=== PATIENT | male | born 1930 | race Caucasian/White ===

== ENCOUNTER 2018-08-18 13:15 | Inpatient (IN) | payer OTHER ==
--- NOTE | 2018-08-18 13:31 | PDOC ---
Attending Attestation - Resident Resident Name: Laith Angulo - HPI HPI: 08/18/18 14:41 Pt presents to the ED complaining of a 5 day history of productive cough, generalized malaise and fever. Also complains of shortness of breath without chest pain. 08/18/18 14:43 08/18/18 14:48 - Physicial Exam PE: 08/18/18 14:48 Agree with resident exam. Patient is alert and oriented and in no acute distress. Lungs are clear. Heart has regular rate and rhythm without murmurs. - Medical Decision Making 08/18/18 14:49 Pt presents to the ED complaining of fever to 102, shortness of breath, productive cough and myalgias. Tachycardic in the Ed. Differential included PNA, ACS, less likely PE. Labs show mild WBC count. CXR ? PNA. Given age and fever, will start IV antibiotics and admit for observation. 08/18/18 18:43
--- NOTE | 2018-08-18 13:32 | PDOC ---
History of Present Illness - General Chief Complaint: Shortness of Breath Stated Complaint: WEAKNESS Time Seen by Provider: 08/18/18 13:30 - History of Present Illness Initial Comments: 08/18/18 14:34 The patient is an 88 year old male with a history of HTN, HLD who presents for evaluation of cough and shortness of breath. The patient reports a 5 day history of intermittently productive cough with associated body aches, fevers and shortness of breath. The patient notes that his fevers have improved, but reports continued shortness of breath, chest congestion and cough prompting his presentation to the ED for further evaluation. He otherwise denies chills, chest pain, nausea, vomiting, abdominal pain, or changes with urination or bowel movements. Past History - Past Medical History Allergies/Adverse Reactions: Allergies Allergy/AdvReac Type Severity Reaction Status Date / Time No Known Allergies Allergy Verified 08/18/18 13:19 Home Medications: Ambulatory Orders Metoprolol Succinate 25 mg PO DAILY 08/18/18 COPD: No HTN: Yes Other medical history: RA - Immunization History Immunization Up to Date: Yes - Suicide/Smoking/Psychosocial Hx Smoking History: Never smoked Hx Alcohol Use: No Drug/Substance Use Hx: No Review of Systems - Review of Systems Comments:: 08/18/18 14:37 Constitutional: Fevers, Body aches, HEENT: No Rhinorrhea, nasal congestion, visual changes Cardiovascular: No chest pain, syncope, palpitations, lightheadedness Respiratory: Cough, SOB. Chest congestion. No Hemoptysis, Gastrointestinal: No Abdominal pain, Nausea, Vomiting, Constipation, Diarrhea, Melena Genitourinary: No Dysuria, Frequency, Urgency, Hesitancy, Hematuria, Flank pain Musculoskeletal: No Myalgia, arthralgia Skin: No rashes, itching, bruising, pallor Neurologic: No Headache, Dizziness, Numbness, Weakness, or Tingling Psychiatric: No Hallucinations. No SI or HI *Physical Exam - Vital Signs Last Vital Signs Temp Pulse Resp BP Pulse Ox 97.6 F 110 H 18 152/88 96 08/18/18 13:21 08/18/18 13:21 08/18/18 13:21 08/18/18 13:21 08/18/18 13:21 - Physical Exam Comments: 08/18/18 14:37 General Appearance: Nourished. No Apparent Distress HEENT: No Pharyngeal Erythema, Tonsillar Exudate, Tonsillar Erythema Neck: No Cervical Lymphadenopathy Respiratory/Chest: Lungs Clear, Normal Breath Sounds. Bibasilar rales noted on exam. No Crackles, Rhonchi, Wheezing Cardiovascular: Regular Rhythm, Regular Rate. No Murmur, Gallops, Rubs Gastrointestinal/Abdominal: Normal Bowel Sounds, Soft. No Guarding, Rebound, Tenderness Musculoskeletal: No CVA Tenderness Extremity: Normal Capillary Refill Integumentary: Normal Color, Dry, Warm Neurologic: Fully Oriented, Alert, Normal Mood/Affect, Normal Response, Moderate Sedation - Procedure Monitoring Vital Signs: Procedure Monitoring Vital Signs Temperature 97.6 F 08/18/18 13:21 Pulse Rate 110 H 08/18/18 13:21 Respiratory Rate 18 08/18/18 13:21 Blood Pressure 152/88 08/18/18 13:21 O2 Sat by Pulse Oximetry (%) 96 08/18/18 13:21 ED Treatment Course - LABORATORY CBC & Chemistry Diagram: 08/19/18 10:14 08/19/18 10:14 Medical Decision Making - Medical Decision Making 08/18/18 14:38 The patient is an 88 year old male with a history of HTN, HLD who presents for evaluation of cough and shortness of breath. Differential includes but is not limited to: Influenza, Pneumonia, ACS, Infections, Metabolic Derangement. Given the patient's history and physical exam, we will obtain a cbc, cmp, troponin, bnp, ekg, chest plain film to evaluate further. We will continue to monitor and reassess while here in the ED. 08/18/18 16:33 CBC demonstrates an elevated WBC to 11. CMP demonstrates a creatinine of 1.8. Chest plain film demonstrated some increased lung markings in the left lower lobe. We will treat the patient with ceftriaxone and azithromycin for a presumed pneumonia and recommend observation admission for further management and monitoring. We discussed the case with the hospitalist team who accepted the patient for admission. *DC/Admit/Observation/Transfer Diagnosis at time of Disposition: Shortness of breath Pneumonia Qualifiers: Pneumonia type: due to unspecified organism Laterality: unspecified laterality Lung location: unspecified part of lung Qualified Code(s): J18.9 - Pneumonia, unspecified organism - Discharge Dispostion Condition at time of disposition: Stable Decision to Admit order: Yes - Referrals - Patient Instructions - Post Discharge Activity
[2018-08-18 14:13] LABS: BASO % 0.6 % (0-2.0); EOS % 1.2 % (0-4.5); HEMATOCRIT 40.5 % (35.4-49); HEMOGLOBIN 13.3 GM/dL (11.7-16.9); LYMPH % 11.1 % (8-40); MCH 30.4 pg (25.7-33.7); MCHC 32.8 g/dl (32.0-35.9); MEAN CELL VOLUME 92.7 fl (80-96); MEAN PLT VOLUME 7.6 fl (7.5-11.1); MONO % 11.7 % (3.8-10.2); NEUT % 75.4 % (42.8-82.8); PLATELET COUNT 291 K/MM3 (134-434); RBC 4.37 M/mm3 (4.00-5.60); RDW 13.5 % (11.9-15.9); WHITE BLOOD COUNT 11.9 K/mm3 (4.0-10.0)
[2018-08-18 14:51] LABS: ALBUMIN 3.2 g/dl (3.4-5.0); ALK PHOS 110 U/L (45-117); ANION GAP 9 MMOL/L (8-16); BILIRUBIN,TOTAL 0.9 mg/dL (0.2-1); BLOOD UREA NITROGEN 42 mg/dL (7-18); CALCIUM 8.6 mg/dL (8.5-10.1); CHLORIDE 99 mmol/L (98-107); CO2 27 mmol/L (21-32); CREATININE 1.8 mg/dL (0.55-1.3); GLUCOSE,RANDOM 129 mg/dL (74-106); N-TERMINAL BNP 606.5 pg/ml (5-450); SGOT/AST 30 U/L (15-37); SGPT/ALT 34 U/L (13-61); SODIUM 136 mmol/L (136-145); TOT PROT 7.6 g/dl (6.4-8.2)
[2018-08-18] MEDS ORDERED: AZITHROMYCIN IVPB 500 MG in DEXTROSE 5%-WATER - 250 ML IVPB ONE (15:22)
[2018-08-18] MEDS ORDERED: CEFTRIAXONE 1 GM in DEXTROSE 5%-WATER - 100 ML IVPB ONE (15:22)
[2018-08-18] MEDS ORDERED: ACETAMINOPHEN 1000 MG/100 ML VIAL (NON FORMULARY) IVPB ONE (15:22)
[2018-08-18] MEDS ORDERED: SODIUM CHLORIDE 1,000 ML IV STA (15:33)
[2018-08-18] MEDS ORDERED: ACETAMINOPHEN INJECTION 100 ML IVPB ONE (15:42)
[2018-08-18] MEDS ORDERED: CEFTRIAXONE 1 GM/50 ML BAG ONE (15:43)
[2018-08-18] MEDS ORDERED: AZITHROMYCIN IVPB 500 MG/250 ML BAG IVPB ONE (15:43)
[2018-08-18 15:47] LABS: PLATELET ESTIMATE ADEQUATE
[2018-08-18] MEDS ORDERED: ALBUTEROL SO4 0.083% IH SOL 2.5 MG/3 ML VIAL.NEB. NEB PRN (17:22)
--- NOTE | 2018-08-18 17:31 | HP ---
CHIEF COMPLAINT: PCP: HISTORY OF PRESENT ILLNESS: Turner Montes is an 88 year old male with a history of HTN, HLD who presents for evaluation of cough and shortness of breath. The patient reports a 5 day history of intermittently productive cough with associated body aches, fevers and shortness of breath. pt denies abd pain, n/v, headache, dizziness. pt also c /o burning sensation in eyes, "feels like eyes have glue on them in the morning ", pt lives home alone, denies being around any sick contacts. pt not able to recall [employer] name, last seen in summer. ER course was notable for: (1) (2)tachycardia (3)ARANZA Recent Travel:Denies PAST MEDICAL HISTORY:HTN, HLD PAST SURGICAL HISTORY: Social History: Smoking:Denies Alcohol:Denies Drugs: Denies Family History: Allergies No Known Allergies Allergy (Verified 08/18/18 13:19) HOME MEDICATIONS: Home Medications Medication Instructions Recorded Metoprolol Succinate 25 mg PO DAILY 08/18/18 REVIEW OF SYSTEMS CONSTITUTIONAL: Absent: +fever, chills, diaphoresis, generalized weakness, malaise, loss of appetite, weight change HEENT: Absent: rhinorrhea, +nasal congestion, throat pain, throat swelling, difficulty swallowing, mouth swelling, ear pain, +redness, burning in eyes, visual changes CARDIOVASCULAR: Absent: chest pain, syncope, palpitations, irregular heart rate, lightheadedness , peripheral edema RESPIRATORY: Absent: +cough, +shortness of breath, dyspnea with exertion, orthopnea, wheezing , stridor, hemoptysis GASTROINTESTINAL: Absent: abdominal pain, abdominal distension, nausea, vomiting, diarrhea, constipation, melena, hematochezia GENITOURINARY: Absent: dysuria, frequency, urgency, hesitancy, hematuria, flank pain, genital pain MUSCULOSKELETAL: Absent: +myalgia, arthralgia, joint swelling, back pain, neck pain SKIN: Absent: rash, itching, pallor HEMATOLOGIC/IMMUNOLOGIC: Absent: easy bleeding, easy bruising, lymphadenopathy, frequent infections ENDOCRINE: Absent: unexplained weight gain, unexplained weight loss, heat intolerance, cold intolerance NEUROLOGIC: Absent: headache, focal weakness or paresthesias, dizziness, unsteady gait, seizure, mental status changes, bladder or bowel incontinence PSYCHIATRIC: Absent: anxiety, depression, suicidal or homicidal ideation, hallucinations. PHYSICAL EXAMINATION Vital Signs - 24 hr 08/18/18 08/18/18 08/18/18 13:21 15:26 16:46 Temperature 97.6 F 100.3 F H Pulse Rate 110 H Respiratory 18 Rate Blood Pressure 152/88 O2 Sat by Pulse 96 98 Oximetry (%) GENERAL: Awake, alert, ill appearinng, flushed face, and fully oriented, in no acute distress. HEAD: Normal with no signs of trauma. EYES: reddness in both eyes, discharge noted in both eyes, Pupils equal, round and reactive to light, extraocular movements intact, sclera anicteric, No lid lag. EARS, NOSE, THROAT: Ears normal, nares patent, oropharynx clear without exudates. Moist mucous membranes. NECK: Normal range of motion, supple without lymphadenopathy, JVD, or masses. LUNGS: Breath sounds equal, clear to auscultation bilaterally. No wheezes, and no crackles. No accessory muscle use. HEART: Regular rate and rhythm, normal S1 and S2 without murmur, rub or gallop. ABDOMEN: Soft, nontender, not distended, normoactive bowel sounds, no guarding, no rebound, no masses. No hepatomegaly or splenomegaly. MUSCULOSKELETAL: Normal range of motion at all joints. No bony deformities or tenderness. No CVA tenderness. UPPER EXTREMITIES: 2+ pulses, warm, well-perfused. No cyanosis. No clubbing. No peripheral edema. LOWER EXTREMITIES: 2+ pulses, warm, well-perfused. No calf tenderness. No peripheral edema. NEUROLOGICAL: Cranial nerves II-XII intact. Normal speech. Normal gait. PSYCHIATRIC: Cooperative. Good eye contact. Appropriate mood and affect. SKIN: Warm, dry, normal turgor, no rashes or lesions noted, normal capillary refill. Laboratory Results - last 24 hr 08/18/18 08/18/18 08/18/18 13:54 13:54 14:22 WBC 11.9 H RBC 4.37 Hgb 13.3 Hct 40.5 MCV 92.7 MCH 30.4 MCHC 32.8 RDW 13.5 Plt Count 291 MPV 7.6 Absolute Neuts (auto) 9.0 H Neutrophils % 75.4 Neutrophils % (Manual) 72.3 Band Neutrophils % 4.9 Lymphocytes % 11.1 Lymphocytes % (Manual) 9.9 Monocytes % 11.7 H Monocytes % (Manual) 9 Eosinophils % 1.2 Eosinophils % (Manual) 0.0 Basophils % 0.6 Basophils % (Manual) 0.0 Myelocytes % (Man) 1 Promyelocytes % (Man) 0 Blast Cells % (Manual) 0 Nucleated RBC % 0 Metamyelocytes 2 Platelet Estimate Adequate Platelet Comment Few large platelets Sodium 136 Potassium 4.0 Chloride 99 Carbon Dioxide 27 Anion Gap 9 BUN 42 H Creatinine 1.8 H Creat Clearance w eGFR 35.79 Random Glucose 129 H Calcium 8.6 Total Bilirubin 0.9 AST 30 ALT 34 Alkaline Phosphatase 110 Creatine Kinase 227 Creatine Kinase Index 0.9 CK-MB (CK-2) 2.2 Troponin I < 0.02 B-Natriuretic Peptide 606.5 H Total Protein 7.6 Albumin 3.2 L Influenza A (Rapid) Negative Influenza B (Rapid) Negative ASSESSMENT/PLAN: Turner Montes is an 88 year old male with a history of HTN, HLD admitted for Admitting Diagnosis CAP Chronic Problems HTN HLD A/P: #PNA -IV azithro, Rocephin -tylenol prn for fever -duonebs prn -blood cx pending -influenza negative -oxygen PRN #ARANZA -monitor BMP -IVF #elevated BNP -reports Echo done in summer was normal -repeat in AM #HTN #HLD -on BB, resume -not on statin Dispo: requires inpatient treatment Full Code DVT Prophylaxis: heparin SQ sodium controlled diet Visit type - Emergency Visit Emergency Visit: Yes ED Registration Date: 08/18/18 Care time: The patient presented to the Emergency Department on the above date and was hospitalized for further evaluation of their emergent condition. - New Patient This patient is new to me today: Yes Date on this admission: 08/18/18 - Critical Care Critical Care patient: No
[2018-08-18] MEDS ORDERED: ACETAMINOPHEN 325 MG TABLET (FP) PO PRN (17:40)
[2018-08-18] MEDS: SODIUM CHLORIDE 1,000 ML IV SCH (18:05)
[2018-08-18 19:56] LABS: URINE APPEARANCE CLEAR; URINE BILIRUBIN NEGATIVE (<2.0 mg/dL); URINE COLOR YELLOW; URINE GLUCOSE (UA) NEGATIVE (NEGATIVE); URINE KETONE NEGATIVE (NEGATIVE); URINE LEUK ESTERASE NEGATIVE (NEGATIVE); URINE NITRITE NEGATIVE (NEGATIVE); URINE PROTEIN 1+ (NEGATIVE); URINE UROBILINOGEN NEGATIVE mg/dL (0.2-1.0)
[2018-08-18 20:10] LABS: EPI CELLS RARE /HPF (FEW); URINE MUCUS RARE
[2018-08-18] MEDS: ALBUTEROL SO4 0.083% IH SOL 2.5 MG/3 ML VIAL.NEB. NEB SCH (21:11)
[2018-08-18 23:04] VITALS: BMI 26.7
[2018-08-18] MEDS: HEPARIN NA (PORCINE) 5,000 UNITS/ML 1ML VIAL SQ SCH (23:32)
[2018-08-19] MEDS: ALBUTEROL SO4 0.083% IH SOL 2.5 MG/3 ML VIAL.NEB. NEB SCH ×6 (00:43→20:00)
[2018-08-19] MEDS ORDERED: DEXTROSE 5%-WATER - 50 ML IVPB ONE (08:55)
[2018-08-19] MEDS ORDERED: cefTRIAXone SODIUM 1 GM VIAL ONE (08:55)
[2018-08-19] MEDS: metoPROLOL SUCCINATE 25 MG TAB.SR.24H (FP) PO SCH (09:02)
[2018-08-19] MEDS: CEFTRIAXONE 1 GM in DEXTROSE 5%-WATER - 50 ML IVPB SCH (09:02)
[2018-08-19] MEDS: HEPARIN NA (PORCINE) 5,000 UNITS/ML 1ML VIAL SQ SCH ×2 (09:02→21:17)
[2018-08-19] MEDS: AZITHROMYCIN IVPB 500 MG/250 ML D5W PRE-DOCKED IVPB SCH (09:45)
[2018-08-19] MEDS ORDERED: AZITHROMYCIN IVPB 500 MG in DEXTROSE 5%-WATER - 250 ML IVPB SCH (10:00)
[2018-08-19 12:33] LABS: ALBUMIN 2.2 g/dl (3.4-5.0); ALK PHOS 77 U/L (45-117); ANION GAP 7 MMOL/L (8-16); BILIRUBIN,TOTAL 0.4 mg/dL (0.2-1); BLOOD UREA NITROGEN 29 mg/dL (7-18); CALCIUM 7.6 mg/dL (8.5-10.1); CHLORIDE 108 mmol/L (98-107); CO2 26 mmol/L (21-32); CREATININE 1.4 mg/dL (0.55-1.3); GLUCOSE,RANDOM 176 mg/dL (74-106); MAGNESIUM 2.3 mg/dL (1.8-2.4); N-TERMINAL BNP 735.6 pg/ml (5-450); POTASSIUM 3.6 mmol/L (3.5-5.1); SGOT/AST 16 U/L (15-37); SGPT/ALT 20 U/L (13-61); SODIUM 140 mmol/L (136-145); TOT PROT 5.5 g/dl (6.4-8.2)
[2018-08-19 12:59] LABS: BASO % 0.3 % (0-2.0); EOS % 0.7 % (0-4.5); HEMATOCRIT 31.2 % (35.4-49); HEMOGLOBIN 10.3 GM/dL (11.7-16.9); LYMPH % 8.7 % (8-40); MCH 30.5 pg (25.7-33.7); MEAN CELL VOLUME 92.2 fl (80-96); MEAN PLT VOLUME 7.9 fl (7.5-11.1); MONO % 8.6 % (3.8-10.2); NEUT % 81.7 % (42.8-82.8); PLATELET COUNT 232 K/MM3 (134-434); RBC 3.39 M/mm3 (4.00-5.60); RDW 13.6 % (11.9-15.9); WHITE BLOOD COUNT 7.6 K/mm3 (4.0-10.0)
[2018-08-19] MEDS: SODIUM CHLORIDE 1,000 ML IV SCH (13:28)
--- NOTE | 2018-08-19 16:49 | EKG ---
Test Reason : Blood Pressure : / mmHG Vent. Rate : 082 BPM Atrial Rate : 082 BPM P-R Int : 182 ms QRS Dur : 074 ms QT Int : 386 ms P-R-T Axes : 033 -22 002 degrees QTc Int : 450 ms SINUS RHYTHM WITH PREMATURE ATRIAL COMPLEXES IN A PATTERN OF BIGEMINY LEFT ATRIAL ENLARGEMENT INFERIOR INFARCT , AGE UNDETERMINED ANTERIOR INFARCT , AGE UNDETERMINED ABNORMAL ECG NO PREVIOUS ECGS AVAILABLE Confirmed by MD NEHAL, JACE ([id number]) on 08/19/2018 4:49:40 PM Referred By: Confirmed By:JACE CALVERT MD
[2018-08-20] MEDS ORDERED: DOCUSATE SODIUM 100 MG CAPSULE (FP) PO PRN (03:49)
[2018-08-20] MEDS ORDERED: SENNOSIDES 8.6MG TABLET (FP) PO PRN (03:49)
[2018-08-20] MEDS: ALBUTEROL SO4 0.083% IH SOL 2.5 MG/3 ML VIAL.NEB. NEB SCH ×4 (04:00→11:01)
[2018-08-20 08:13] LABS: ALBUMIN 2.4 g/dl (3.4-5.0); ALK PHOS 80 U/L (45-117); ANION GAP 7 MMOL/L (8-16); BILIRUBIN,TOTAL 0.4 mg/dL (0.2-1); BLOOD UREA NITROGEN 25 mg/dL (7-18); CHLORIDE 112 mmol/L (98-107); CO2 26 mmol/L (21-32); CREATININE 1.2 mg/dL (0.55-1.3); GLUCOSE,RANDOM 89 mg/dL (74-106); PHOSPHOROUS 3.6 mg/dL (2.5-4.9); POTASSIUM 4.1 mmol/L (3.5-5.1); SGOT/AST 22 U/L (15-37); SGPT/ALT 22 U/L (13-61); SODIUM 145 mmol/L (136-145); TOT PROT 5.7 g/dl (6.4-8.2)
[2018-08-20 08:19] LABS: BASO % 0.6 % (0-2.0); EOS % 3.4 % (0-4.5); HEMATOCRIT 30.5 % (35.4-49); HEMOGLOBIN 10.8 GM/dL (11.7-16.9); LYMPH % 12.4 % (8-40); MCH 32.6 pg (25.7-33.7); MCHC 35.5 g/dl (32.0-35.9); MEAN CELL VOLUME 91.9 fl (80-96); MEAN PLT VOLUME 8.2 fl (7.5-11.1); MONO % 9.6 % (3.8-10.2); PLATELET COUNT 270 K/MM3 (134-434); RBC 3.32 M/mm3 (4.00-5.60); RDW 13.7 % (11.9-15.9); WHITE BLOOD COUNT 8.5 K/mm3 (4.0-10.0)
--- NOTE | 2018-08-20 09:28 | PN ---
Physical Exam: SUBJECTIVE: Patient seen and examined OBJECTIVE: Vital Signs Period Temp Pulse Resp BP Sys/Christianson Pulse Ox Last 24 Hr 97.7 F-98.2 F 70-80 18-20 110-116/61-65 98 GENERAL: The patient is awake, alert, and fully oriented, in no acute distress. HEAD: Normal with no signs of trauma. EYES: PERRL, extraocular movements intact, sclera anicteric, conjunctiva clear. No ptosis. ENT: Ears normal, nares patent, oropharynx clear without exudates, moist mucous membranes. NECK: Trachea midline, full range of motion, supple. LUNGS: Breath sounds equal, clear to auscultation bilaterally, no wheezes, no crackles, no accessory muscle use. HEART: Regular rate and rhythm, S1, S2 without murmur, rub or gallop. ABDOMEN: Soft, nontender, nondistended, normoactive bowel sounds, no guarding, no rebound, no hepatosplenomegaly, no masses. EXTREMITIES: 2+ pulses, warm, well-perfused, no edema. NEUROLOGICAL: Cranial nerves II through XII grossly intact. Normal speech, gait not observed. PSYCH: Normal mood, normal affect. SKIN: Warm, dry, normal turgor, no rashes or lesions noted Laboratory Results - last 24 hr 08/19/18 08/19/18 08/20/18 10:14 10:14 07:00 WBC 7.6 8.5 RBC 3.39 L 3.32 L Hgb 10.3 L 10.8 L Hct 31.2 L D 30.5 L MCV 92.2 91.9 MCH 30.5 32.6 MCHC 33.0 35.5 RDW 13.6 13.7 Plt Count 232 D 270 MPV 7.9 8.2 Absolute Neuts (auto) 6.2 6.3 Neutrophils % 81.7 74.0 Lymphocytes % 8.7 D 12.4 D Monocytes % 8.6 9.6 Eosinophils % 0.7 3.4 D Basophils % 0.3 0.6 Nucleated RBC % 0 0 Sodium 140 Potassium 3.6 Chloride 108 H Carbon Dioxide 26 Anion Gap 7 L BUN 29 H Creatinine 1.4 H Creat Clearance w eGFR 47.83 Random Glucose 176 H Calcium 7.6 L Phosphorus Magnesium 2.3 Total Bilirubin 0.4 AST 16 ALT 20 Alkaline Phosphatase 77 B-Natriuretic Peptide 735.6 H Total Protein 5.5 L Albumin 2.2 L 08/20/18 07:00 WBC RBC Hgb Hct MCV MCH MCHC RDW Plt Count MPV Absolute Neuts (auto) Neutrophils % Lymphocytes % Monocytes % Eosinophils % Basophils % Nucleated RBC % Sodium 145 Potassium 4.1 Chloride 112 H Carbon Dioxide 26 Anion Gap 7 L BUN 25 H Creatinine 1.2 Creat Clearance w eGFR 57.14 Random Glucose 89 Calcium 8.0 L Phosphorus 3.6 Magnesium 2.0 Total Bilirubin 0.4 AST 22 ALT 22 Alkaline Phosphatase 80 B-Natriuretic Peptide Total Protein 5.7 L Albumin 2.4 L Active Medications Generic Name Dose Route Start Last Admin Trade Name Freq PRN Reason Stop Dose Admin Acetaminophen 650 mg 08/18/18 17:40 Tylenol - PO Q4H PRN FEVER Albuterol Sulfate 1 amp 08/18/18 20:00 08/20/18 07:23 Ventolin 0.083% Nebulizer Soln - NEB 1 amp RQ4H ZANA Administration Azithromycin 500 mg 08/19/18 10:00 08/19/18 09:45 Zithromax 500mg Ivpb (Pre-Docked) IVPB 500 mg DAILY ZANA Administration Docusate Sodium 100 mg 08/20/18 03:49 08/20/18 03:55 Colace - PO 100 mg BID PRN Administration CONSTIPATION Heparin Sodium (Porcine) 5,000 unit 08/18/18 22:00 08/19/18 21:17 Heparin - SQ 5,000 unit BID ZANA Administration Sodium Chloride 1,000 mls @ 100 mls/hr 08/18/18 17:30 08/19/18 13:28 Normal Saline - IV 100 mls/hr ASDIR ZANA Administration Ceftriaxone Sodium 1 gm/ 50 mls @ 100 mls/hr 08/19/18 10:00 08/19/18 09:02 Dextrose IVPB 100 mls/hr DAILY ZANA Administration Protocol Metoprolol Succinate 25 mg 08/19/18 10:00 08/19/18 09:02 Toprol Xl - PO 25 mg DAILY ZANA Administration Senna 2 tab 08/20/18 03:49 08/20/18 03:56 Senna - PO 2 tab HS PRN Administration CONSTIPATION ASSESSMENT/PLAN:
[2018-08-20] MEDS ORDERED: cefTRIAXone SODIUM 1 GM VIAL ONE (10:04)
[2018-08-20] MEDS ORDERED: DEXTROSE 5%-WATER - 50 ML IVPB ONE (10:04)
[2018-08-20] MEDS: CEFTRIAXONE 1 GM in DEXTROSE 5%-WATER - 50 ML IVPB SCH (10:11)
[2018-08-20] MEDS: metoPROLOL SUCCINATE 25 MG TAB.SR.24H (FP) PO SCH (10:12)
[2018-08-20] MEDS: HEPARIN NA (PORCINE) 5,000 UNITS/ML 1ML VIAL SQ SCH (10:12)
[2018-08-20] MEDS: AZITHROMYCIN IVPB 500 MG/250 ML D5W PRE-DOCKED IVPB SCH (10:13)
--- NOTE | 2018-08-20 11:27 | PN ---
Teaching Attending Note Name of Resident: Anh Carlos ATTENDING PHYSICIAN STATEMENT I saw and evaluated the patient. I reviewed the resident's note and discussed the case with the resident. I agree with the resident's findings and plan as documented with exceptions below. SUBJECTIVE: Patient seen and examined. breathing and coughing markedly improved, tolerating diet well, no new concerns. OBJECTIVE: Vital Signs Period Temp Pulse Resp BP Sys/Christianson Pulse Ox Last 24 Hr 97.7 F-98.6 F 70-95 18-20 110-135/61-69 96-98 Intake & Output 08/17/18 08/18/18 08/19/18 08/20/18 23:59 23:59 23:59 23:59 Intake Total 200 1950 1700 Balance 200 1950 1700 Weight 170 lb 14 oz General: sitting in bed in no acute distress chest: fine basilar rales, L>R, no wheezing, good air entry bilaterally Abdomen;Soft, NT, NT Extremities: no edema HEENT: no conjunctival injection or discharge noted currently Home Medications Medication Instructions Recorded Metoprolol Succinate 25 mg PO DAILY 08/18/18 Active Medications Acetaminophen (Tylenol -) 650 mg PO Q4H PRN PRN Reason: FEVER Albuterol Sulfate (Ventolin 0.083% Nebulizer Soln -) 1 amp NEB RQ4H ZANA Last Admin: 08/20/18 11:01 Dose: 1 amp Azithromycin (Zithromax 500mg Ivpb (Pre-Docked)) 500 mg IVPB DAILY ZANA Last Admin: 08/20/18 10:13 Dose: 500 mg Docusate Sodium (Colace -) 100 mg PO BID PRN PRN Reason: CONSTIPATION Last Admin: 08/20/18 03:55 Dose: 100 mg Heparin Sodium (Porcine) (Heparin -) 5,000 unit SQ BID ZANA Last Admin: 08/20/18 10:12 Dose: 5,000 unit Ceftriaxone Sodium 1 gm/ (Dextrose) 50 mls @ 100 mls/hr IVPB DAILY ZANA; Protocol Last Admin: 08/20/18 10:11 Dose: 100 mls/hr Metoprolol Succinate (Toprol Xl -) 25 mg PO DAILY ZANA Last Admin: 08/20/18 10:12 Dose: 25 mg Senna (Senna -) 2 tab PO HS PRN PRN Reason: CONSTIPATION Last Admin: 08/20/18 03:56 Dose: 2 tab Laboratory Results - last 24 hr 08/19/18 08/19/18 08/20/18 10:14 10:14 07:00 WBC 7.6 8.5 RBC 3.39 L 3.32 L Hgb 10.3 L 10.8 L Hct 31.2 L D 30.5 L MCV 92.2 91.9 MCH 30.5 32.6 MCHC 33.0 35.5 RDW 13.6 13.7 Plt Count 232 D 270 MPV 7.9 8.2 Absolute Neuts (auto) 6.2 6.3 Neutrophils % 81.7 74.0 Lymphocytes % 8.7 D 12.4 D Monocytes % 8.6 9.6 Eosinophils % 0.7 3.4 D Basophils % 0.3 0.6 Nucleated RBC % 0 0 Sodium 140 Potassium 3.6 Chloride 108 H Carbon Dioxide 26 Anion Gap 7 L BUN 29 H Creatinine 1.4 H Creat Clearance w eGFR 47.83 Random Glucose 176 H Calcium 7.6 L Phosphorus Magnesium 2.3 Total Bilirubin 0.4 AST 16 ALT 20 Alkaline Phosphatase 77 B-Natriuretic Peptide 735.6 H Total Protein 5.5 L Albumin 2.2 L 08/20/18 07:00 WBC RBC Hgb Hct MCV MCH MCHC RDW Plt Count MPV Absolute Neuts (auto) Neutrophils % Lymphocytes % Monocytes % Eosinophils % Basophils % Nucleated RBC % Sodium 145 Potassium 4.1 Chloride 112 H Carbon Dioxide 26 Anion Gap 7 L BUN 25 H Creatinine 1.2 Creat Clearance w eGFR 57.14 Random Glucose 89 Calcium 8.0 L Phosphorus 3.6 Magnesium 2.0 Total Bilirubin 0.4 AST 22 ALT 22 Alkaline Phosphatase 80 B-Natriuretic Peptide Total Protein 5.7 L Albumin 2.4 L ASSESSMENT AND PLAN: 88 yom with PMHx of HTN, HLd admitted with left basilar CAP and URI like illness -left basilar CAP -URI like illness -ARANZA, suspect from hpypovolumia from poor oral intake, resolved Plan; Doing well no oxygen needs noted ceftriaxone/azithromycin day 3. transition to cefuroxime/azithromycin for 7 days BNP noted, fine basilar rales,2D echo to assess LV function d/c on po abx later today pending above Plan discussed with patient and nursing, all questions answered.
[2018-08-20 13:31] LABS: ANISOCYTOSIS 0; MACROCYTOSIS 0; PLATELET ESTIMATE NORMAL; TEAR DROP CELLS 1+
[2018-08-20 15:12] VITALS: BP 139/77; PULSE 91; TEMP 98.5
--- NOTE | 2018-08-20 15:50 | DS ---
Physical Exam: SUBJECTIVE: Patient seen and examined at bed side this morning. States his cough has improved, no watery eyes or runny nose. ROS negative. Constipated despite being on bowel regimen. Agrees to try enema. OBJECTIVE: Vital Signs Period Temp Pulse Resp BP Sys/Christianson Pulse Ox Last 24 Hr 97.7 F-98.6 F 70-95 18-20 110-139/61-77 95-98 PHYSICAL EXAM GENERAL: Elderly male, sitting comfortably in bed, is awake, alert, and fully oriented, in no acute distress EYES: EOM intact, no pallor or icterus. NECK: Supple, No JVD. LUNGS: B/L coarse breath sounds, no wheeze. HEART: Regular rate and rhythm, S1, S2 with soft systolic murmur. ABDOMEN: Soft, nontender, no organomegaly. EXTREMITIES: 2+ pulses, warm, well-perfused, no edema. NEUROLOGICAL: No facial droop. Normal speech, gait not observed. PSYCH: Normal mood, normal affect. SKIN: Warm, dry, normal turgor, no rashes or lesions noted. LABS Laboratory Results - last 24 hr 08/20/18 08/20/18 07:00 07:00 WBC 8.5 RBC 3.32 L Hgb 10.8 L Hct 30.5 L MCV 91.9 MCH 32.6 MCHC 35.5 RDW 13.7 Plt Count 270 MPV 8.2 Absolute Neuts (auto) 6.3 Neutrophils % 74.0 Neutrophils % (Manual) 73.5 Band Neutrophils % 2.1 Lymphocytes % 12.4 D Lymphocytes % (Manual) 5.1 L D Monocytes % 9.6 Monocytes % (Manual) 6 Eosinophils % 3.4 D Eosinophils % (Manual) 1.0 D Basophils % 0.6 Basophils % (Manual) 1.0 D Myelocytes % (Man) 1 Promyelocytes % (Man) 0 Blast Cells % (Manual) 0 Nucleated RBC % 0 Metamyelocytes 1 D Hypochromia 0 Platelet Estimate Normal Polychromasia 1+ Poikilocytosis 0 Anisocytosis 0 Microcytosis 0 Macrocytosis 0 Tear Drop Cells 1+ Sodium 145 Potassium 4.1 Chloride 112 H Carbon Dioxide 26 Anion Gap 7 L BUN 25 H Creatinine 1.2 Creat Clearance w eGFR 57.14 Random Glucose 89 Calcium 8.0 L Phosphorus 3.6 Magnesium 2.0 Total Bilirubin 0.4 AST 22 ALT 22 Alkaline Phosphatase 80 Total Protein 5.7 L Albumin 2.4 L Microbiology 08/18/18 15:29 Blood - Peripheral Venous Blood Culture - Preliminary NO GROWTH OBTAINED AFTER 48 HOURS, INCUBATION TO CONTINUE FOR 3 DAYS. 08/18/18 15:29 Blood - Peripheral Venous Blood Culture - Preliminary NO GROWTH OBTAINED AFTER 48 HOURS, INCUBATION TO CONTINUE FOR 3 DAYS. 08/18/18 17:35 Urine - Urine Clean Catch Legionella Antigen - Final 08/18/18 17:35 Urine - Urine Clean Catch Streptococcus pneumoniae Antigen ( M - Final ECHO 08/20/18: EF- 65-70%, mild mR, TR, diastolic dysfunction grade II HOSPITAL COURSE: Date of Admission:08/18/18 Date of Discharge: 08/20/18 Patient is an 88 year old male with a history of HTN, HLD who presented to the ED for evaluation of cough and shortness of breath. Was found to have Community acquired pneumonia, treated with IV Ceftriaxone. Blood cultures, Influenza and legionella was negative. Patients symptoms improved, runny nose and watery eyes resolved. On admission, creatinine was 1.8, treated with IV fluids and now ARANZA has resolved, most likely it was from dehydration. Encouraged patient to take plenty of fluids. ECHO was done and shortness of breath from cardiac origin was ruled out. Pre and post exercise saturation was done, patient doesn't qualify for home oxygen. Vitals are stable, patient is clinically improving, sending the patient home on Cefuroxime and Azithromycin for 4 more days. Plan of care explained to the patient. He verbalized understanding. Minutes to complete discharge: 45 Discharge Summary Reason For Visit: SOB, PNEUMONIA Current Active Problems Pneumonia (Acute) Shortness of breath (Acute) Condition: Improved - Instructions Diet, Activity, Other Instructions: You were admitted for the treatment of pneumonia and was given IV antibiotics. Now sending you home on PO antibiotics. You also had an ultrasound of your heart (2D echocardiogram) that showed effect of BP on the heart, otherwise normal function MEDICATIONS: The following new medications are added: Cefuroxime 500 mg twice daily for 4 days Azithromycin 500 mg daily for 4 days. Encourage Over the Counter laxatives to ensure 1 bowel movement in 2-3 days Continue your home medications as before DIET Low salt Adequate hydration/plenty of fluids ACTIVITY resume as tolerated FOLLOW UP: Primary care doctor in 1-2 weeks Blood work to check your kidneys (Basic Metabolic Panel) in 1-2 weeks with your doctor (You Kidney function was abnormal on admission, that normalized with hydration) If you notice any new fevers, chills, worsening cough, bloody sputum, chest pain , or any new concerns, please call 911 or come to ED. Referrals: Jama Chaudhary MD [Primary Care Provider] - Disposition: HOME - Home Medications Comprehensive Discharge Medication List: Ambulatory Orders Metoprolol Succinate 25 mg PO DAILY 08/18/18 Azithromycin 500 mg PO DAILY #4 tablet 08/20/18 Cefuroxime Axetil [Cefuroxime] 500 mg PO BID #8 tablet 08/20/18 This patient is new to me today: Yes Date on this admission: 08/20/18 Emergency Visit: Yes ED Registration Date: 08/18/18 Care time: The patient presented to the Emergency Department on the above date and was hospitalized for further evaluation of their emergent condition. Critical Care patient: No - Discharge Referral Referred to [facility] No
== END 2018-08-20 17:51 | disposition home or self-care (01) | DRG 194 ==
LOC: JER 13:15 → JERBED 15:34 → OBSVTOIN 18:58 → J6S 22:32
PROVIDERS: ADMIT Hospitalist; ATTEND Hospitalist
DX: J18.9 Pneumonia, unspecified organism (principal); N17.9 Acute kidney failure, unspecified; I10 Essential (primary) hypertension; E78.5 Hyperlipidemia, unspecified; M06.9 Rheumatoid arthritis, unspecified
CPT/HCPCS: 36415; 71046-TC-FY; 80053; 81003; 81015; 82550; 82553; 83735; 83880; 84100; 84484; 85025; 87040; 87804; 87899; 93005; 93010; 93306-TC; 94640; 94761; 99285-25; G0378; J0131; J1644; J7030